=== PATIENT | female | born 1945 | race African-American/Black ===

== ENCOUNTER → 2023-09-26 14:04 | Outpatient (REF) | payer OTHER, SELFPAY | LOC: HWRAD 14:04 | PROVIDERS: ATTENDING PHYSICIAN Internal Medicine Pulmonary Disease; FAMILY PHYSICIAN Family Medicine | DX: R06.09 Other forms of dyspnea (principal) | CPT/HCPCS: 71250 ==

== ENCOUNTER → 2024-11-17 16:09 | Outpatient (REF) | payer OTHER, SELFPAY | LOC: RAD 16:09 | PROVIDERS: ATTENDING PHYSICIAN Family Medicine | DX: R60.0 Localized edema (principal) | CPT/HCPCS: 93971 ==

== ENCOUNTER → 2024-12-16 10:09 | Outpatient (REF) | payer OTHER, SELFPAY | LOC: HWRCS 10:09 | PROVIDERS: ATTENDING PHYSICIAN Internal Medicine Cardiovascular Disease; FAMILY PHYSICIAN Family Medicine | DX: I27.20 Pulmonary hypertension, unspecified (principal); J98.4 Other disorders of lung; R60.0 Localized edema | CPT/HCPCS: 93306 ==

== ENCOUNTER → 2024-12-24 06:37 | Outpatient (REF) | payer OTHER, SELFPAY ==
[2024-12-24] MEDS: DOBUTREX 60 MG IV (08:24)
[2024-12-24] MEDS: DOBUTREX 60 ML IV (08:24)
[2024-12-24] MEDS: NSS 250 IV (08:26)
== END ==
LOC: RCS 06:37
PROVIDERS: ATTENDING PHYSICIAN Internal Medicine Cardiovascular Disease; FAMILY PHYSICIAN Family Medicine
DX: R06.00 Dyspnea, unspecified (principal)
CPT/HCPCS: 78452; 93017; A9500

== ENCOUNTER 2025-01-14 05:59 | Day surgery (SDC) | payer OTHER, SELFPAY ==
[2025-01-14] VITALS (7 sets, daily range): BP systolic 115–138; BP diastolic 66–88; BMI 38.7
[2025-01-14 06:42] LABS: Hematocrit 43.8 % (37.0-47.0); Hemoglobin 14.1 g/dL (12.0-16.0); Mean Corp Hgb Conc. 32.2 g/dL (33.0-37.0); Mean Corpuscular Hgb 30.5 pg (27.0-31.0); Mean Corpuscular Volume 94.6 fL (81.0-99.0); Mean Platelet Volume 8.6 fL (7.4-10.4); Platelet Count 392 10^3/uL (130-400); Red Blood Cell Count 4.63 10^6/uL (4.20-5.40); Red Cell Dist. Width 14.2 % (11.5-14.5); White Blood Cell Count 7.2 10^3/uL (4.8-10.8)
[2025-01-14 07:50] LABS: Blood Urea Nitrogen 18 mg/dl (7-17); Carbon Dioxide 24 mmol/L (22-30); Chloride 112 mmol/L (98-107); Estimated Creatinine Clearance 58 ml/min; Glucose 121 mg/dl (70-99); Potassium 3.6 mmol/L (3.5-5.1); Sodium 142 mmol/L (135-145)
--- NOTE | 2025-01-14 07:54 | ITS.CL.CATH ---
Inventory Representative - Catheterization
Cardiac Catheterization
Procedure Report:
RIGHT HEART CATHETERIZATION WITH SHUNT RUN
Date of Procedure: January 14, 2025
Referring: Mayra Magana MD
INDICATION: Ongoing dyspnea on exertion
Hemodynamics (mmHg):
RA (m) : 12
RV (s/d,m) : 54/14, 19
PA (s/d, m) : 53/26, 38
PCWP (m) : 34 with V waves up to 47
PA saturation: 64.6% on room air
AO saturation: 92.0% on room air
Mid RA saturation: 64.5% on room air
High RA saturation: 63.2% on room air
Right ventricular saturation: 63.0% on room air
IVC saturation: 58.0% on room air
Low SVC saturation: 60.9% on room air
High SVC saturation: 61.3% on room air
Cardiac Output : 3.62 L/min by Julia calculation
Cardiac Index : 1.63 L/min/m-2 by Julia calculation
Systemic vascular resistance: 1856 dsc^(-5)
Pulmonary vascular resistance: 0.95 dumont unit
Heart rate: 78 bpm
RADIATION SUMMARY: Fluoro Time (min): 3.1 Dose (mGy): 63.5 DAP (Gy.cm2) : 5.99
SEDATION: 16 minutes of procedural sedation was utilized. IV Midazolam and IV Fentanyl were administered. An independent director medical safety was present to assist with and help manage the patient's level of consciousness and physiologic status.
CONCLUSION:
1. Significantly elevated right and left-sided filling pressures with reduced cardiac output in the setting of significantly elevated systemic vascular resistance.
2. No major step ups or step downs noted on short run.
RECOMMENDATIONS:
1. Optimization for goal-directed medical therapy for heart failure with preserved EF with aggressive diuretics, low-dose losartan for elevated SVR and addition of SGLT2 inhibitor.
2. Follow up with Dr. Magana.
Copy to: Mayra Magana MD
Lillian Montgomery MD, FAC, [facility]
[2025-01-14] MEDS: LASIX 40 MG IV (08:13)
== END 2025-01-14 09:15 | disposition home or self-care (01) ==
LOC: CATH 05:59
PROVIDERS: ATTENDING PHYSICIAN Internal Medicine Interventional Cardiology; FAMILY PHYSICIAN Family Medicine; OTHER PHYSICIAN Internal Medicine Cardiovascular Disease
DX: R06.09 Other forms of dyspnea (principal); I27.20 Pulmonary hypertension, unspecified; J44.9 Chronic obstructive pulmonary disease, unspecified; R60.0 Localized edema; E03.9 Hypothyroidism, unspecified; Z87.891 Personal history of nicotine dependence; Z79.84 Long term (current) use of oral hypoglycemic drugs
CPT/HCPCS: 99152; C1894; C1769; 80048; 85027; 93005; 93451